=== PATIENT | female | born 1990 | race Caucasian/White ===

== ENCOUNTER 2017-09-29 08:35 | Outpatient (CLI) | END 2017-09-29 11:00 | disposition home or self-care (01) ==

== ENCOUNTER 2017-09-29 11:11 | Emergency (ER) | END 2017-09-29 15:36 | disposition home or self-care (01) ==

== ENCOUNTER 2017-11-07 04:30 | Inpatient (IN) | END 2017-11-09 15:16 | disposition home or self-care (01) | DRG 775 ==

== ENCOUNTER 2017-11-21 18:16 | Emergency (ER) | END 2017-11-21 19:10 | disposition home or self-care (01) ==